=== PATIENT | male | born 1975 | race Caucasian/White ===

== ENCOUNTER 2017-01-11 05:40 | Emergency (ER) | payer SELFPAY ==
[~2017-01-11] VITALS: Ht 175.3 cm; Wt 77.1 kg
[2017-01-11 06:10] VITALS: BP 121/57
[2017-01-11] MEDS ORDERED: NAPROXEN 500 MG TABLET PO ONE (06:15)
[2017-01-11] MEDS ORDERED: oxyCODONE/APAP 5/325 1 TAB TABLET PO ONE (06:15)
--- NOTE | 2017-01-11 06:23 | ED.ADGEN ---
Adult General Chief Complaint Chief Complaint: ANKLE PROBLEM HPI HPI Patient is a 41 year old man, with no significant past no history, who presents to the emergency department with a complaint of left ankle pain. Patient states that he was at a [place] party about midnight, he slipped on some stairs, falling down about 3 stairs landing on his buttocks. Patient states that his ankle twisted underneath him. He states that at the time he didn't believe he hurt that badly , was able to get back up and ambulate with some discomfort. He states over the pain and swelling has worsened over the past several hours. He denies striking his head, neck, back, abdominal region, denies pain in any location. Moving knee and foot without difficulty. No previous injuries. He states he has not taken any medication prior to his ED. States that he does smoke daily, and was drinking last night, but is clinically sober in the emergency department, I did drive himself to the ED. Review of Systems Review of Systems Constitutional: Denies fever or chills. [] Eyes: Denies change in visual acuity. [] HENT: Denies nasal congestion or sore throat. [] Respiratory: Denies cough or shortness of breath. [] Cardiovascular: Denies chest pain or edema. [] GI: Denies abdominal pain, nausea, vomiting, bloody stools or diarrhea. [] : Denies dysuria. [] Musculoskeletal: Denies back pain, pain in the left ankle. Integument: Denies rash. [] Neurologic: Denies headache, focal weakness or sensory changes. [] Endocrine: Denies polyuria or polydipsia. [] Lymphatic: Denies swollen glands. [] Psychiatric: Denies depression or anxiety. [] Current Medications Current Medications Current Medications Medications (Trade) Dose Ordered Sig/Steve Start Time Stop Time Status Last Admin Dose Admin Naproxen (Naprosyn) 500 mg 1X ONCE 01/11/17 06:15 01/11/17 06:30 DC 01/11/17 06:20 500 MG Oxycodone/ Acetaminophen (Percocet 5/325) 1 tab 1X ONCE 01/11/17 06:15 01/11/17 06:30 DC 01/11/17 06:20 1 TAB Allergies Allergies Allergies Coded Allergies Type Severity Reaction Last Updated Verified No Known Drug Allergies 7/23/17 No Physical Exam Physical Exam Constitutional: Well developed, well nourished, no acute distress, non-toxic appearance. [] HENT: Normocephalic, atraumatic, bilateral external ears normal, oropharynx moist, no oral exudates, nose normal. [] Eyes: PERRLA, EOMI, conjunctiva normal, no discharge. [] Neck: Normal range of motion, no tenderness, supple, no stridor. [] Cardiovascular:Heart rate regular rhythm, no murmur, S1, S2, rubs or gallops. [] Lungs & Thorax: Bilateral breath sounds clear to auscultation, no wheezing, rhonchi, rales. No chest tenderness or crepitus. [] Abdomen: Bowel sounds normal, soft, no tenderness, no rebound, rigidity, no guarding, no masses, no pulsatile masses. [] Skin: Warm, dry, no erythema, no rash. [] Back: No midline or paraspinal tenderness, no CVA tenderness. [] Extremities: No tenderness to palpation in the left knee or proximal tibia region, patient with tenderness to palpation over the distal anterior tibia, bilateral malleoli, with swelling noted bilateral malleoli, no cyanosis, no clubbing, no edema. [] Icepack in place. Neurologic: Alert and oriented X 3, normal motor function, normal sensory function, no focal deficits noted. [] Psychologic: Affect normal, judgement normal, mood normal. [] Current Patient Data Vital Signs Vital Signs Date Time Temp Pulse Resp B/P (MAP) Pulse Ox O2 Delivery O2 Flow Rate FiO2 01/11/17 06:10 98.2 92 22 97 Room Air 98.2 EKG EKG Not indicated. [] Radiology/Procedures Radiology/Procedures Left ankle x-ray: Three-view: Soft tissue swelling noted, but no bony abnormality, fracture, or subluxation identified. As interpreted by me. Left foot x-ray: Three-view: No bony, soft tissue, or other abnormalities identified. As interpreted by me. [] Course & Med Decision Making Course & Med Decision Making Pertinent Labs and Imaging studies reviewed. (See chart for details) Icepack applied in the emergency department, patient received Percocet and naproxen, examination reveals significant soft tissue swelling around the entire ankle, there is no specific bony point tenderness or crepitus, patient is tender in the entire anterior tibial and bilateral malleolus region. Patient' s x-rays reveal soft tissue swelling but no evidence of bony abnormality. Did discuss with patient evidence of a high-grade sprain. Patient agreeable to receiving splint in the ED, and crutch walking instructions, patient crutch walking without difficulty. He was able to call a ride to take him home, instructed to follow-up with orthopedics if symptoms persist over the next 5-7 days, to use crutches and splint for comfort as directed, ice and elevation, cyclobenzaprine and naproxen, and return to the ED for concerning symptoms as discussed. Patient voiced understanding and agreement with plan as stated, discharged home in stable condition with plan as above. Dragon Disclaimer David Disclaimer This electronic medical record was generated, in whole or in part, using a voice recognition dictation system. Departure Impression: Primary Impression: High ankle sprain of left lower extremity Disposition: 01 HOME, SELF-CARE Condition: IMPROVED Scripts Cyclobenzaprine Hcl (CYCLOBENZAPRINE HCL) 10 Mg Tablet 10 MG PO TID Y for MUSCLE PAIN, #12 TAB Prov: JOSE CALLAHAN DO 01/11/17 Naproxen (NAPROXEN) 250 Mg Tablet 250 MG PO PRN BID Y for PAIN, #10 Prov: JOSE CALLAHAN DO 01/11/17 JOSE CALLAHAN DO Jan 11, 2017 06:23
[2017-01-11] MEDS ORDERED: NAPR250T2 PO (06:50)
[2017-01-11] MEDS ORDERED: CYCL10TA2 PO (06:50)
--- NOTE | 2017-01-11 08:10 | RAD ---
Indication swelling. AP oblique and lateral views of the left knee were obtained. No acute bony finding is seen. Significant degenerative changes are not apparent.
--- NOTE | 2017-01-11 08:15 | RAD ---
Indication swelling. Discomfort. AP oblique and lateral views of the left ankle were obtained. Some soft tissue swelling is noted over the lateral malleolus. A bony abnormality is not seen
== END 2017-01-11 07:59 | disposition home or self-care (01) ==
LOC: ER 05:40
DX: S93.402A Sprain of unspecified ligament of left ankle, initial encounter (principal); W01.0XXA Fall on same level from slipping, tripping and stumbling without subsequent striking against object, initial encounter; Y93.89 Activity, other specified; Y92.89 Other specified places as the place of occurrence of the external cause; Y99.8 Other external cause status
CPT/HCPCS: 29515; 73610; 73630; 99284-25